=== PATIENT | female | born 1970 | race African-American/Black ===

== ENCOUNTER 2017-02-02 23:57 | Emergency (ER) | payer OTHER ==
--- NOTE | ~2017-02-02 | CR195 ---
[facility] A Service of [facility] RADIOLOGY TEXT RESULTS PATIENT: KEON BRAVO LOCATION: [facility] : 72 UNIT #: [id number] AGE: [address]: Ish Mcclain MD SEX: F ORDER DR: [id number] [facility] [address] [place], [place] [address] [id number] MR#: [id number] Acc #: [id number] NAME: KEON BRAVO : 1970 SEX: F STUDY DATE/TIME: 02/03/2017 UNIT: [facility] ROOM: STUDY DESCRIPTION: Neck Soft Tissue Attending Physician: Ish Mcclain M.D. Ordering Physician: Ish Mcclain M.D. Primary Care Physician: No Primary Care Physician MEDICAL IMAGING REPORT This report is preliminary unless electronic signature is present EXAM Soft tissue neck, 02/03 INDICATIONS Shortness of air with trouble swallowing for 1 year. FINDINGS AP and lateral views of the neck were obtained. Cervical spine demonstrates normal alignment. Prevertebral soft tissues are normal. Airway is widely patent. There is some soft tissue prominence at the level of the epiglottis. This may be artifactual. Consider contrast enhanced neck CT or direct visualization for further evaluation. IMPRESSION Soft tissue prominence at the level of the epiglottis. This is nonspecific and could indicate artifact. However, followup with either direct visualization or contrast enhanced neck CT is suggested to exclude any true soft tissue abnormality at this level. The exam is otherwise normal. Dictated by... Maury Pugh Jr., M.D. THIS IS AN ELECTRONICALLY VERIFIED REPORT Maury Pugh Jr., M.D. at 02/03/2017 9:16 PM JUAN JK/ricardo TD: 02/03/2017 09:58 JOB #: [id number] MEDICAL IMAGING REPORT [facility] A Service [facility] RADIOLOGY TEXT RESULTS PATIENT: KEON BRAVO LOCATION: [facility] : 72 UNIT #: [id number] AGE: [address]: Ish Mcclain MD SEX: F ORDER DR: COPY
[~2017-02-02 23:57] MED LIST: ALBUTEROL17 GM INH; AMOXICILLIN875 MG PO; DIFLUCAN PO; FLEXERIL10 M1 PO; FLEXERIL10 MG PO; IBUPROFEN800 MG PO; INDOMETHACIN50 MG PO; KEFLEX PO; MACROBID 100 M100 MG PO; MEDROL PO; ORUDIS75 M1 DOB; TESSALON200 MG PO
[2017-02-02 23:58] LABS: BASOPHIL# 0.1 X10e3 (0-0.3); DIFF IND NO; EOSINOPHIL# 0.1 X10e3 (0-0.7); EOSINOPHIL% 1.5 % (0.0-7.0); HEMATOCRIT 32.6 % (35.0-45.0); HEMOGLOBIN 10.5 gm/dL (12.0-16.0); LYMPHOCYTE# 2.6 X10e3 (1.0-3.5); LYMPHOCYTE% 43.3 % (17.0-45.0); MEAN CELL VOLUME 78.8 FL (83-96); MEAN CORPUSCULAR HEMOGLOBIN 25.4 PG (28-34); MEAN CORPUSCULAR HGB CONC 32.2 g/dL (30-36); MEAN PLATELET VOLUME 7.1 FL (6.5-11.5); MONOCYTE# 0.5 X10e3 (0-1.0); MONOCYTE% 8.2 % (3.0-12.0); NEUTROPHIL# 2.7 X10e3 (1.5-7.1); PLATELET COUNT 219 X10e3 (140-420); RED BLOOD COUNT 4.14 X10e (3.90-5.30); RED CELL DISTRIBUTION WIDTH 14.6 % (11.0-15.5)
[2017-02-03 00:20] LABS: BLOOD UREA NITROGEN 10 mg/dL (9-23); BUN/CREATININE RATIO 11.11; CALCIUM SERUM 8.4 mg/dL (8.4-10.2); CARBON DIOXIDE 29 mmol/L (22-31); CHLORIDE 97 mmol/L (100-111); CREATININE SERUM 0.9 mg/dL (0.6-1.4); GLOM FILT RATE Estimated ABOVE60 mL/min (>60); GLUCOSE FASTING 113 mg/dL (70-110); SODIUM 133 mmol/L (135-145)
[2017-02-03 00:27] LABS: POTASSIUM 2.9 mmol/L (3.5-5.1)
== END 2017-02-03 01:05 | disposition home or self-care (01) ==
LOC: CED 23:57
PROVIDERS: Emergency Medicine
DX: E87.6 Hypokalemia (principal); K21.9 Gastro-esophageal reflux disease without esophagitis
CPT/HCPCS: 36415; 70360; 80048; 84443; 85025; 99284

== ENCOUNTER 2017-02-19 19:34 | Emergency (ER) | payer OTHER | END 2017-02-19 19:58 | disposition home or self-care (01) | LOC: CFTX 19:34 | DX: S61.411A Laceration without foreign body of right hand, initial encounter (principal); H65.93 Unspecified nonsuppurative otitis media, bilateral; K21.9 Gastro-esophageal reflux disease without esophagitis; W25.XXXA Contact with sharp glass, initial encounter; Y92.009 Unspecified place in unspecified non-institutional (private) residence as the place of occurrence of the external cause | CPT/HCPCS: 12001; 99283 ==

== ENCOUNTER 2017-03-22 11:55 | Emergency (ER) | payer OTHER | END 2017-03-22 12:24 | disposition home or self-care (01) | LOC: CFTX 11:55 | DX: J02.0 Streptococcal pharyngitis (principal); K21.9 Gastro-esophageal reflux disease without esophagitis; Z91.040 Latex allergy status | CPT/HCPCS: 87880; 96372; 99283; J0561 ==

== ENCOUNTER 2017-04-27 16:16 | Emergency (ER) | payer OTHER ==
--- NOTE | ~2017-04-27 | EKG ---
PATIENT: KEON BRAVO UNIT #: [id number] Ventricular Rate: 90 BPM Atrial Rate: 90 BPM P-R Interval: 150 ms QRS Duration: 88 ms Q-T Interval: 368 ms QTC Calculation(Bezet): 450 ms P [place]: 50 degrees Calculated R [place]: -28 degrees Calculated T [place]: 3 degrees Diagnosis Line: Normal sinus rhythm Diagnosis Line: Nonspecific T wave abnormality Diagnosis Line: Abnormal ECG Diagnosis Line: When compared with ECG of 02-MAY-2015 21:31, Diagnosis Line: No significant change was found Diagnosis Line: Confirmed by COLLIN CRAWFORD MD ([id number]) on Diagnosis Line: 05/01/2017 9:39:25 AM INTERPRETING MD: CHANTEL
--- NOTE | ~2017-04-27 | CR72 ---
[facility] A Service of [facility] & [facility] RADIOLOGY TEXT RESULTS PATIENT: KEON BRAVO LOCATION: [facility] : 72 UNIT #: [id number] AGE: [address]: Mellisa Kilpatrick MD SEX: F ORDER DR: [id number] [facility] [address] [place], [place] [address] [id number] MR#: [id number] Acc #: [id number] NAME: KEON BRAVO. : 1970 SEX: F STUDY DATE/TIME: 04/27/2017 18:22 UNIT: [facility] ROOM: STUDY DESCRIPTION: CR Chest Single View Portable Attending Physician: Mellisa Klipatrick M.D. Ordering Physician: Mellisa Kilpatrick M.D. Primary Care Physician: [facility] MEDICAL IMAGING REPORT This report is preliminary unless electronic signature is present EXAM Portable chest, 04/27/2017 HISTORY Shortness of breath, lightheaded, generalized weakness beginning today. Benign essential hypertension. FINDINGS A single AP portable view of the chest shows both lungs to be clear. The heart is normal in size. The mediastinal contour is normal. No significant bone abnormalities are seen. IMPRESSION Normal portable chest. Dictated by... Antwan Billingsley M.D. THIS IS AN ELECTRONICALLY VERIFIED REPORT Antwan Billingsley M.D. at 04/29/2017 8:22 AM BRIAN/chilango TD: 04/28/2017 02:12 JOB #: [id number] MEDICAL IMAGING REPORT Page 1 of 1 COPY
[2017-04-27 17:11] LABS: BASOPHIL% 0.7 % (0-2.5); EOSINOPHIL# 0.1 X10e3 (0-0.7); EOSINOPHIL% 1.3 % (0.0-7.0); HEMATOCRIT 36.8 % (35.0-45.0); HEMOGLOBIN 11.7 gm/dL (12.0-16.0); LYMPHOCYTE# 2.1 X10e3 (1.0-3.5); LYMPHOCYTE% 41.7 % (17.0-45.0); MEAN CELL VOLUME 79.8 FL (83-96); MEAN CORPUSCULAR HEMOGLOBIN 25.4 PG (28-34); MEAN CORPUSCULAR HGB CONC 31.8 g/dL (30-36); MEAN PLATELET VOLUME 7.4 FL (6.5-11.5); MONOCYTE# 0.3 X10e3 (0-1.0); MONOCYTE% 6.3 % (3.0-12.0); NEUTROPHIL# 2.5 X10e3 (1.5-7.1); PLATELET COUNT 257 X10e3 (140-420); RED BLOOD COUNT 4.61 X10e (3.90-5.30); RED CELL DISTRIBUTION WIDTH 14.7 % (11.0-15.5)
[2017-04-27 17:22] LABS: DIFF IND NO
[2017-04-27 17:35] LABS: ALBUMIN SERUM 4.2 g/dL (3.5-5.0); BILIRUBIN, DIRECT 0.1 mg/dL (0.0-0.2); BILIRUBIN,INDIRECT 0.1 mg/dL (0.0-0.9); BILIRUBIN,TOTAL 0.2 mg/dL (0.2-2.0); CALCIUM SERUM 9.6 mg/dL (8.4-10.2); GLOM FILT RATE Estimated 78.8 mL/min (>60); POTASSIUM 3.7 mmol/L (3.5-5.1); PROTEIN TOTAL SERUM 8.2 g/dL (6.0-8.3)
[2017-04-27 18:49] LABS: POC - CKMB <1.0 ng/mL (0.0-7.9); POC - TROPONIN <0.05 ng/mL (<=0.05)
[2017-04-27 19:11] LABS: POC - CKMB <1.0 ng/mL (0.0-7.9); POC - TROPONIN <0.05 ng/mL (<=0.05)
== END 2017-04-27 20:04 | disposition home or self-care (01) ==
LOC: CED 16:16
PROVIDERS: Emergency Medicine
DX: R06.00 Dyspnea, unspecified (principal); Z91.041 Radiographic dye allergy status
CPT/HCPCS: 36415; 71010; 80048; 80076; 82553; 84484; 85025; 93005; 99284

== ENCOUNTER 2017-06-04 21:11 | Emergency (ER) | payer OTHER | END 2017-06-04 22:35 | disposition home or self-care (01) | LOC: CFTX 21:11 → CED 21:11 → CFTX 22:34 | DX: H66.91 Otitis media, unspecified, right ear (principal); K21.9 Gastro-esophageal reflux disease without esophagitis; Z91.041 Radiographic dye allergy status | CPT/HCPCS: 99282 ==

== ENCOUNTER 2017-07-04 16:27 | Observation (INO) | payer OTHER ==
[~2017-07-04] VITALS: Ht 160 cm; Wt 89.8 kg
--- NOTE | ~2017-07-04 | EKG ---
PATIENT: KEON BRAVO UNIT #: [id number] Ventricular Rate: 72 BPM Atrial Rate: 72 BPM P-R Interval: 152 ms QRS Duration: 90 ms Q-T Interval: 400 ms QTC Calculation(Bezet): 438 ms P [place]: 61 degrees Calculated R [place]: -25 degrees Calculated T [place]: -7 degrees Diagnosis Line: Normal sinus rhythm Diagnosis Line: Minimal voltage criteria for LVH, may be normal Diagnosis Line: variant Diagnosis Line: Cannot rule out Septal infarct , age undetermined Diagnosis Line: Borderline ECG Diagnosis Line: When compared with ECG of 27-APR-2017 17:25, Diagnosis Line: Possible Septal infarct is now Present Diagnosis Line: Confirmed by DEZ DAY MD ([id number]) on 07/06/2017 Diagnosis Line: 10:55:05 PM INTERPRETING MD: BARB RUSSELL
--- NOTE | ~2017-07-04 | CR72 ---
[facility] A Service of [facility] & [facility] RADIOLOGY TEXT RESULTS PATIENT: KEON BRAVO LOCATION: [facility] [id number] : [birth year] UNIT #: [id number] AGE: [address]: DENISE VALENTINO MD SEX: F ORDER DR: [id number] [facility] [address] [place], [place] [address] [id number] E MR#: [id number] Acc #: [id number] NAME: KEON BRAVO : 1970 SEX: F STUDY DATE/TIME: 07/04/2017 17:02 UNIT: [facility] ROOM: STUDY DESCRIPTION: CR Chest Single View Portable Attending Physician: Bhavik Lopes D.O. Ordering Physician: Bhavik Lopes D.O. Primary Care Physician: [facility] MEDICAL IMAGING REPORT This report is preliminary unless electronic signature is present EXAM Portable chest HISTORY Chest pain, lightheadedness, dizziness today. COMPARISON 04/27/2017 FINDINGS A single AP portable view of the chest shows both lungs to be clear. The heart is normal in size. The mediastinal contour is normal. No significant bone abnormalities are seen. IMPRESSION Normal portable chest. Dictated by... Johnny Arriaza M.D. THIS IS AN ELECTRONICALLY VERIFIED REPORT Johnny Arriaza M.D. at 07/04/2017 10:04 PM ASHIA/chilango TD: 07/04/2017 19:05 JOB #: [id number] MEDICAL IMAGING REPORT Page 1 of 1 COPY
--- NOTE | ~2017-07-04 | DS ---
Unit #: [id number] #: [id number] Patient: KEON BRAVO [id number] [address] [address] [id number] MR#: [id number] NAME: KEON BRAVO. ROOM: 330 Age: 46 Sex: F Admission Date: 07/04/2017 : 1970 Discharge Date: Attending Physician: Melva Florian M.D. Primary Care Physician: [facility] DISCHARGE SUMMARY SHORT STAY SUMMARY HISTORY OF PRESENT ILLNESS This is a 46-year-old female with a prior history of a mass on her neck, degenerative disc disease, and gastroesophageal reflux disease. She presented to the ER with complaints of intermittent chest pain described as tightness in her left chest with accompanying dizziness and lightheadedness. She states the pain comes or goes at rest or with activity off and on for the past several months. Denies radiating pain into her arm, neck, or jaw. Denies nausea or diaphoresis with the pain. The pain resolved in the ER. She denies chest pain currently. Denies recent illness with fevers, chills, body aches, nausea, vomiting, or diarrhea. She denies a prior history of diabetes, hypertension, hyperlipidemia, or tobacco abuse. Denies a family history of premature coronary artery disease. PAST MEDICAL HISTORY 1. Degenerative disc disease. 2. Gastroesophageal reflux disease. 3. Mass on neck, status post radiation and chemotherapy. PAST SURGICAL HISTORY 1. section. 2. Cervical radiation. 3. Tubal ligation. 4. Left arm surgery. 5. Thyroid biopsy. SOCIAL HISTORY She denies alcohol or illicit drug use. She is a lifetime nonsmoker. FAMILY HISTORY Denies a family history of premature coronary artery disease. ALLERGIES Percocet and IV dye. HOME MEDICATIONS 1. Pantoprazole 40 mg p.o. daily. 2. Iron 325 mg p.o. daily. REVIEW OF SYSTEMS A 10-point review of systems was conducted and is otherwise negative except for what was stated in the HPI. Unit #: [id number] #: [id number] Patient: KEON BRAVO PHYSICAL EXAMINATION VITAL SIGNS: Temperature 98.7, heart rate 77, respiratory rate 20, and blood pressure 136/92. HEENT: Head is atraumatic and normocephalic. Pupils are equal and round. Mucous membranes are moist and intact. NECK: Supple. Trachea is midline. Negative for JVD. LUNGS: Clear to auscultation. Nonlabored respirations. CARDIOVASCULAR: S1 and S2, regular rate and rhythm. No significant murmurs, rubs, or gallops. ABDOMEN: Soft, nontender, and nondistended. Active bowel sounds. EXTREMITIES: Pulses are palpable. No pedal edema. No cyanosis. NEUROLOGIC: Alert and oriented x3. Moves all extremities equally and follows commands without difficulty. DIAGNOSTIC STUDIES LABORATORY: Glucose 137, BUN 8, creatinine 0.8, sodium 138, potassium 3.4, AST 20, ALT 16, and alkaline phosphatase 69. Troponin less than 0.03 x2. Lipid profile: Cholesterol 256, triglycerides 337, LDL 158, and HDL 31. TSH is 2.54. Hemoglobin 11.4, hematocrit 35.1, white blood cell count 4.4, and platelets 248,000. IMAGING: Chest x-ray shows no active disease. CARDIOLOGY: EKG shows normal sinus rhythm with a ventricular rate of 72 and nonspecific T wave abnormalities. ASSESSMENT 1. Atypical chest pain. 2. Hyperlipidemia. PLAN Patient is currently chest pain free. She denies a prior history of cardiac testing. Would suggest a Cardiolite exercise stress test. Patient states she needs to go home. She states she has bills to pay, and she absolutely has to leave. Her stress test can be done as an outpatient. Her echocardiogram was reviewed per Dr. Berman and is normal. We will discharge her home today and have her follow up for outpatient stress test and a followup appointment with Dr. Berman in one to two weeks. Prescriptions given for medications. Please see discharge medication reconciliation. DISPOSITION Home. DISCHARGE CONDITION Stable. DISCHARGE INSTRUCTIONS Follow up with Dr. Berman in one to two weeks. Dictated by... Sepideh Morgan APRN for John Paul Zaidi TD: 07/05/2017 15:01 JOB #: [id number] Unit #: [id number] #: [id number] Patient: KEON BRAVO DISCHARGE SUMMARY Page 1 of 1 X X DISCHARGE SUMMARY
[2017-07-04 17:20] LABS: BASOPHIL% 0.6 % (0-2.5); EOSINOPHIL# 0.1 X10e3 (0-0.7); EOSINOPHIL% 1.6 % (0.0-7.0); HEMATOCRIT 35.1 % (35.0-45.0); HEMOGLOBIN 11.4 gm/dL (12.0-16.0); LYMPHOCYTE# 1.9 X10e3 (1.0-3.5); LYMPHOCYTE% 43.5 % (17.0-45.0); MEAN CELL VOLUME 78.6 FL (83-96); MEAN CORPUSCULAR HEMOGLOBIN 25.4 PG (28-34); MEAN CORPUSCULAR HGB CONC 32.4 g/dL (30-36); MEAN PLATELET VOLUME 7.2 FL (6.5-11.5); MONOCYTE# 0.3 X10e3 (0-1.0); MONOCYTE% 6.1 % (3.0-12.0); NEUTROPHIL# 2.1 X10e3 (1.5-7.1); NEUTROPHIL% 48.2 % (40-75); PLATELET COUNT 248 X10e3 (140-420); RED BLOOD COUNT 4.46 X10e (3.90-5.30); RED CELL DISTRIBUTION WIDTH 14.8 % (11.0-15.5); WHITE BLOOD COUNT 4.4 X10e3 (4.0-10.5)
[2017-07-04 17:24] LABS: DIFF IND NO
[2017-07-04 17:29] LABS: POC - CKMB <1.0 ng/mL (0.0-7.9); POC - TROPONIN <0.05 ng/mL (<=0.05)
[2017-07-04 17:49] LABS: ALBUMIN SERUM 3.9 g/dL (3.5-5.0); ALKALINE PHOSPHATASE 75 U/L (32-92); ALT (SGPT) 18 U/L (10-40); AST (SGOT) 21 U/L (10-42); BILIRUBIN, DIRECT <0.1 mg/dL (0.0-0.2); BILIRUBIN,INDIRECT 0.2 mg/dL (0.0-0.9); BILIRUBIN,TOTAL 0.3 mg/dL (0.2-2.0); BLOOD UREA NITROGEN 8 mg/dL (9-23); BUN/CREATININE RATIO 8.88; CALCIUM SERUM 9.2 mg/dL (8.4-10.2); CARBON DIOXIDE 31 mmol/L (22-31); CHLORIDE 102 mmol/L (100-111); CREATININE SERUM 0.9 mg/dL (0.6-1.4); GLOM FILT RATE Estimated 89.6 mL/min (>60); GLUCOSE FASTING 109 mg/dL (70-110); POTASSIUM 3.3 mmol/L (3.5-5.1); PROTEIN TOTAL SERUM 7.9 g/dL (6.0-8.3); SODIUM 139 mmol/L (135-145)
[2017-07-04 18:50] LABS: POC - CKMB <1.0 ng/mL (0.0-7.9); POC - TROPONIN <0.05 ng/mL (<=0.05)
[2017-07-04] MEDS ORDERED: PANTOPRAZOLE SO40 MG PO (20:05)
[2017-07-04] MEDS ORDERED: FERROUS SULFAT325 MG PO (20:06)
[2017-07-04 20:16] LABS: URINE SOURCE CLEAN CATCH
[2017-07-04 20:21] LABS: URINE APPEARANCE CLEAR; URINE BILIRUBIN NEG (NEG); URINE BLOOD NEG (NEG); URINE COLOR YELLOW; URINE GLUCOSE NEG (NEG); URINE KETONE NEG (NEG); URINE LEUKOCYTE ESTERASE TRACE (NEG); URINE NITRATE NEG (NEG); URINE PH 7.5 (5-8); URINE PROTEIN NEG (NEG); URINE SPECIFIC GRAVITY 1.013 (1.003-1.035); URINE UROBILINOGEN 0.2 MG/DL (NEG)
[2017-07-04 20:23] LABS: U HYALINE CASTS AUWI 0-2 /[LPF]; URINE BACTERIA AUWI NEG (NEGATIVE); URINE SQUAMOUS EPITHELIAL CELL NONE SEEN /[HPF]
[2017-07-04 20:25] LABS: CULTURE INDICATED? NO
[2017-07-04 20:34] LABS: URINE MUCUS PRESENT
[2017-07-05 01:37] LABS: %MB 1.6 % (0.0-4.0); MB 1.1 ng/ml
[2017-07-05 01:43] LABS: ALBUMIN SERUM 3.5 g/dL (3.5-5.0); BILIRUBIN,TOTAL 0.1 mg/dL (0.2-2.0); CALCIUM SERUM 8.8 mg/dL (8.4-10.2); CREATININE SERUM 0.8 mg/dL (0.6-1.4); GLOM FILT RATE Estimated 103.3 mL/min (>60); POTASSIUM 3.4 mmol/L (3.5-5.1); PROTEIN TOTAL SERUM 7.1 g/dL (6.0-8.3)
[2017-07-05 02:02] LABS: %MB 1.1 % (0.0-4.0); MB 1.1 ng/ml
[2017-07-05] MEDS ORDERED: LISINOPRIL5 MG PO (14:39)
[2017-07-05] MEDS ORDERED: LIPITOR40 MG PO (14:40)
[2017-07-05] MEDS ORDERED: ASPIRIN81 MG PO (14:40)
== END 2017-07-05 15:46 | disposition home or self-care (01) ==
LOC: CED 16:27 → CEDOF 20:00 → C3A PCU 20:00 → CED 20:00 → C3A PCU 20:23 → CEDOF 20:23 → C3A PCU 22:33 → CEDOF 22:33 → C3A PCU 07-05 15:46
PROVIDERS: Emergency Medicine; Internal Medicine
DX: R07.89 Other chest pain (principal); K21.9 Gastro-esophageal reflux disease without esophagitis; E78.5 Hyperlipidemia, unspecified; Z82.49 Family history of ischemic heart disease and other diseases of the circulatory system; Z88.5 Allergy status to narcotic agent; Z88.8 Allergy status to other drugs, medicaments and biological substances; Z91.041 Radiographic dye allergy status; Z79.899 Other long term (current) drug therapy; Z98.51 Tubal ligation status; Z98.890 Other specified postprocedural states
CPT/HCPCS: 36415; 71010; 80048; 80053; 80061; 80076; 81003; 82550; 82553; 82947; 84443; 84484; 84703; 85025; 93005; 93306; 96360; 99285; G0378